=== PATIENT | male | born 1965 | race African-American/Black ===

== ENCOUNTER 2018-04-20 20:36 | Inpatient (IN) | payer SELFPAY ==
[2018-04-20 21:55] LABS: #Basophils 0.1 thou/uL (0.0-0.2); #Lymphocytes 2.3 thou/uL (1.20-3.40); #Monocytes 0.7 thou/uL (0.11-0.59); #Neutrophils 5.1 thou/uL (1.40-6.50); %Basophils 1.6 % (0.0-1.0); %Eosinophils 0.5 % (0.0-10.0); %Lymphocytes 27.6 % (21.0-51.0); %Monocytes 8.5 % (0.0-10.0); %Neutrophils 61.8 % (42.0-75.0); Hemoglobin 14.2 g/dL (14.0-18.0); Mean Corpuscular HGB CONC 31.8 g/dL (32.0-36.0); Mean Corpuscular Hemoglobin 29.1 pg (27.0-31.0); Mean Corpuscular Volume 91.5 fL (78.0-98.0); Mean Platelet Volume 8.4 fL (7.4-10.4); Platelet Count 241 thou/uL (130-400); RBC Distribution Width 12.2 % (11.5-14.5); White Blood Cell (WBC) Count 8.3 thou/uL (4.8-10.8)
[2018-04-20 22:07] LABS: ALT (SGPT) 16 U/L (8-55); AST (SGOT) 20 U/L (5-34); Alkaline Phosphatase 217 U/L (40-150); Anion Gap 16 mmol/L (10-20); BUN (Urea Nitrogen) 9 mg/dL (8.9-20.6); Bilirubin, Total 0.4 mg/dL (0.2-1.2); CRP (Inflammatory) 1.27 mg/dL (= or < 0.5); Calc. Creatinine Clearance 0 mL/min (70-130); Calcium 9.9 mg/dL (7.8-10.44); Carbon Dioxide 27 mmol/L (22-29); Chloride 95 mmol/L (98-107); Estimated GFR-MDRD Greater than 90; Globulin 4.5 g/dL (2.4-3.5); Glucose 87 mg/dL (70-105); Lipase 10 U/L (8-78); Potassium 3.6 mmol/L (3.5-5.1); Protein, Total 8.5 g/dL (6.0-8.3); Sodium 134 mmol/L (136-145)
[2018-04-20] MEDS ORDERED: Ondansetron PF 4 MG/2 ML Vial ONE (22:07)
[2018-04-20] MEDS ORDERED: Morphine 4 MG/ML VIAL ONE ×2 (22:07→22:08)
--- NOTE | 2018-04-20 23:07 | CT ---
CT ABDOMEN AND PELVIS PERFORMED WITH INTRAVENOUS CONTRAST ENHANCEMENT: HISTORY: Diffuse abdominal pain, sudden onset, Saturday. FINDINGS: The lung bases appear mildly hyperexpanded. No infiltrative process. This examination was obtained in a more arterial phase. The liver, spleen, pancreas, and gallbladder regions appear unremarkable, considering this. The right and left adrenal glands and the right and left kidneys are normal in size and appearance. There is no significant periaortic adenopathy. There are some small mesenteric lymph nodes present. There appear to be some postoperative changes with what appear to be some surgical chain type sutures associated with a proximally dilated small bowel loop. There is a fairly normal caliber ileum, whic h progresses to a group of dilated small bowel loops in the left mid abdomen, which is the proximal t o mid ileum. There is a transition to a more caliber mid to distal ileum. There is free fluid withi n the pelvis, more than typically seen for a male. At the level of the more distal transition to a m ore normal caliber small bowel, there is suggestion that there is bowel wall edema associated with th e dilated small bowel loop. There is no pneumatosis identified and no free air. The appendix is not definitively identified. IMPRESSION: Postoperative changes of the abdomen. There is proximal small bowel obstruction involving the proxim al and mid ileum. There appear to be some postoperative changes. This could be more of a closed loo p obstruction, possibly related to adhesions. There does appear to be some mild small bowel wall kaleigh ma associated with this and more free fluid within the pelvis than typically seen for a male. The po ssibility of ischemic bowel is not totally excluded, although I do not see any other features, such a s pneumatosis or free air. These findings were discussed with Dr. Lindo's PA. CODE CR POS: [facility]
--- NOTE | 2018-04-20 23:10 | RAD ---
KUB AND UPRIGHT: HISTORY: Diffuse abdominal pain. FINDINGS: ABDOMEN: There is air within some dilated proximal small bowel loops, with a more focally dilated lo op of bowel, which appears to be small bowel, which overlies the kidney. There are chain type suture s in this region. There is air within the colon. No free air demonstrated. Contrast in the kidneys from the CT is present. CHEST: Heart size and mediastinum are within normal limits. The lungs are clear of infiltrates. IMPRESSION: Postoperative changes of the abdomen with what appears to be a proximal small bowel obstruction. POS: [facility]
--- NOTE | 2018-04-20 23:54 | RAD ---
KUB: HISTORY: NG tube placement. FINDINGS: The NG tube is seen with the tip in the fundus region of the stomach. No other interval change. IMPRESSION: Placement of nasogastric tube. POS: [facility]
[2018-04-21] MEDS ORDERED: Ondansetron PF 4 MG/2 ML Vial IVP PRN (00:24)
[2018-04-21] MEDS ORDERED: Ondansetron ODT 4 MG TAB SL PRN (00:24)
[2018-04-21] MEDS ORDERED: Morphine 4 MG/ML VIAL SLOW IVP PRN (01:17)
[2018-04-21] MEDS ORDERED: Ketorolac Tromethamine 30 MG/ML VIAL IVP PRN (01:18)
[2018-04-21] MEDS: Sodium Chloride 0.9% 1,000 ML IV SCH ×2 (01:32→11:36)
[2018-04-21] MEDS: Acetaminophen 1,000 MG in Premix Bag 1 BAG IVPB PRN ×3 (01:32→21:55)
[2018-04-21 02:00] VITALS: BMI 16.5
[2018-04-21] MEDS: Morphine 4 MG/ML VIAL SLOW IVP PRN ×2 (02:35→04:53)
--- NOTE | 2018-04-21 08:39 | RAD ---
CHEST 1 VIEW AND ABDOMEN 2 VIEWS: Date: 04/21/18 HISTORY: Small bowel obstruction. FINDINGS: Comparison made with exam from previous day. FINDINGS: The heart size is normal. There has been interval placement of a nasogastric tube which can be traced into the stomach. The lungs are expanded without focal areas of consolidation, pneumothoraces, or pl eural effusions. No free air is seen. There is air in loops of small and large bowel. Some of the small bowel loops ap pear dilated. Postop changes are seen in the abdomen. There is contrast in the urinary bladder and pe lvicaliceal systems. IMPRESSION: Ileus versus partial small bowel obstruction. POS: [facility]
[2018-04-21] MEDS ORDERED: Pantoprazole 40 MG VIAL IVP SCH (10:45)
[2018-04-21] MEDS ORDERED: Cepastat Lozenges 1 LOZ PO PRN (11:04)
[2018-04-21] MEDS ORDERED: Chloraseptic Spray 180 ml Bottle PO PRN (11:05)
[2018-04-21] MEDS: D5 1/2 NS w/20 mEq KCL 1,000 ML IV SCH ×2 (17:40→20:33)
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
[2018-04-21] MEDS ORDERED: Ondansetron PF 4 MG/2 ML Vial SLOW IVP PRN (18:51)
[2018-04-22] MEDS: D5 1/2 NS w/20 mEq KCL 1,000 ML IV SCH ×2 (03:54→13:15)
[2018-04-22 08:55] LABS: #Basophils 0.1 thou/uL (0.0-0.2); #Lymphocytes 1.7 thou/uL (1.20-3.40); #Monocytes 0.6 thou/uL (0.11-0.59); #Neutrophils 3.9 thou/uL (1.40-6.50); %Basophils 1.1 % (0.0-1.0); %Eosinophils 0.7 % (0.0-10.0); %Neutrophils 61.2 % (42.0-75.0); Hemoglobin 12.1 g/dL (14.0-18.0); Mean Corpuscular HGB CONC 33.1 g/dL (32.0-36.0); Mean Corpuscular Hemoglobin 30.4 pg (27.0-31.0); Mean Corpuscular Volume 91.9 fL (78.0-98.0); Mean Platelet Volume 8.2 fL (7.4-10.4); Platelet Count 173 thou/uL (130-400); Red Blood Cell (RBC) Count 3.98 mill/uL (4.70-6.10); White Blood Cell (WBC) Count 6.3 thou/uL (4.8-10.8)
[2018-04-22] MEDS ORDERED: diphenhydrAMINE 50 MG/ML VIAL IVP PRN (08:58)
[2018-04-22] MEDS ORDERED: Pantoprazole 40 MG VIAL IVP SCH (09:00)
[2018-04-22 09:29] LABS: Anion Gap 10 mmol/L (10-20); BUN (Urea Nitrogen) 9 mg/dL (8.9-20.6); Calc. Creatinine Clearance 89 mL/min (70-130); Calcium 8.1 mg/dL (7.8-10.44); Carbon Dioxide 27 mmol/L (22-29); Chloride 103 mmol/L (98-107); Estimated GFR-MDRD Greater than 90; Glucose 100 mg/dL (70-105); Magnesium 2.7 mg/dL (1.6-2.6); Phosphorus 2.6 mg/dL (2.3-4.7); Potassium 3.7 mmol/L (3.5-5.1); Sodium 136 mmol/L (136-145)
--- NOTE | 2018-04-22 11:20 | RAD ---
SMALL BOWEL SERIES: Date: 04/22/18 HISTORY: Small bowel obstruction, abdominal pain. FINDINGS: Brim Setter film demonstrates a nasogastric tube in the stomach. The bowel gas pattern is unremarkable. Ser ial imaging was performed after instillation of Gastrografin into the stomach via NG tube. There is u nobstructed flow of contrast through the loops of small bowel into the colon by 70 minutes. There is mild dilatation of a few small bowel loops in the left hemiabdomen. IMPRESSION: No evidence of small bowel obstruction. POS: [facility]
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
[2018-04-22 15:56] VITALS: BP 104/61; TEMP 98.1
--- NOTE | 2018-04-25 15:30 | EKG ---
Test Reason : Blood Pressure : / mmHG Vent. Rate : 054 BPM Atrial Rate : 054 BPM P-R Int : 148 ms QRS Dur : 082 ms QT Int : 426 ms P-R-T Axes : 060 071 081 degrees QTc Int : 403 ms Sinus bradycardia Minimal voltage criteria for LVH, may be normal variant ST elevation, consider early repolarization, pericarditis, or injury ST elevatopn in V3 No STEMI Abnormal ECG Confirmed by AMY PEREZ M.D. ([id number]), associate entertainment editor DA ESTEVEZ ([id number]) on 04/25/2018 3:30:21 PM Referred By: Confirmed By:AMY PEREZ M.D.
== END 2018-04-22 15:50 | disposition home or self-care (01) | DRG 390 ==
LOC: ERS 20:36 → SURG B 23:01
PROVIDERS: ADMIT Specialist; ATTEND Specialist
PROC: 0D9670Z Drainage of Stomach with Drainage Device, Via Natural or Artificial Opening (ICD-10-PCS; principal; 2018-04-20)
DX: K56.609 Unspecified intestinal obstruction, unspecified as to partial versus complete obstruction (principal); G40.909 Epilepsy, unspecified, not intractable, without status epilepticus
CPT/HCPCS: 36415; 74018; 74022; 74177; 74250; 80048; 80053; 83690; 83735; 84100; 84484; 85025; 86140; 90471; 90686; 93005; C9113; G0008; J0131; J1200; J2270; J2405; J2920

== ENCOUNTER 2018-05-23 23:26 | Inpatient (IN) | payer SELFPAY ==
[2018-05-24] MEDS ORDERED: Ondansetron PF 4 MG/2 ML Vial ONE ×2 (00:05→05:51)
[2018-05-24] MEDS ORDERED: Morphine 4 MG/ML VIAL ONE ×4 (00:05→08:17)
[2018-05-24 00:20] LABS: #Basophils 0.1 thou/uL (0.0-0.2); #Eosinphils 0.1 thou/uL (0.0-0.7); #Lymphocytes 2.2 thou/uL (1.20-3.40); #Monocytes 0.4 thou/uL (0.11-0.59); #Neutrophils 3.8 thou/uL (1.40-6.50); %Basophils 0.8 % (0.0-1.0); %Eosinophils 1.3 % (0.0-10.0); %Lymphocytes 33.6 % (21.0-51.0); %Monocytes 6.7 % (0.0-10.0); %Neutrophils 57.6 % (42.0-75.0); Hemoglobin 12.2 g/dL (14.0-18.0); Mean Corpuscular HGB CONC 32.2 g/dL (32.0-36.0); Mean Corpuscular Hemoglobin 30.2 pg (27.0-31.0); Mean Corpuscular Volume 93.9 fL (78.0-98.0); Mean Platelet Volume 8.3 fL (7.4-10.4); Platelet Count 180 thou/uL (130-400); RBC Distribution Width 12.3 % (11.5-14.5); Red Blood Cell (RBC) Count 4.03 mill/uL (4.70-6.10); White Blood Cell (WBC) Count 6.6 thou/uL (4.8-10.8)
[2018-05-24 00:42] LABS: ALT (SGPT) 11 U/L (8-55); AST (SGOT) 14 U/L (5-34); Albumin 3.9 g/dL (3.5-5.0); Alkaline Phosphatase 202 U/L (40-150); Anion Gap 15 mmol/L (10-20); BUN (Urea Nitrogen) 9 mg/dL (8.9-20.6); Bilirubin, Total 0.3 mg/dL (0.2-1.2); Calc. Creatinine Clearance 0 mL/min (70-130); Calcium 9.1 mg/dL (7.8-10.44); Carbon Dioxide 23 mmol/L (22-29); Chloride 102 mmol/L (98-107); Estimated GFR-MDRD Greater than 90; Globulin 3.5 g/dL (2.4-3.5); Glucose 84 mg/dL (70-105); Potassium 3.9 mmol/L (3.5-5.1); Protein, Total 7.4 g/dL (6.0-8.3); Sodium 136 mmol/L (136-145)
[2018-05-24 00:51] LABS: Bilirubin Negative (Negative); Blood, Urine Negative (Negative); Clarity CLEAR (Clear); Glucose, Urine (Dipstick) Negative (Negative); Leukocyte Negative (Negative); Nitrite Negative (Negative); Protein, Urine (Dipstick) Trace mg/dL (Neg-Trace); Specific Gravity, Urine 1.029 (1.002-1.036); Urobilinogen 0.2 mg/dL (0.2-1.0)
[2018-05-24] MEDS ORDERED: Lidocaine Viscous Sol 2% 15 ml UD Cup ONE (03:08)
--- NOTE | 2018-05-24 08:53 | RAD ---
RADIOGRAPH CHEST 1 VIEW: Date: 05/24/2018. Time: 3:16 a.m. HISTORY: 52-year-old male status post NG tube placement. Abdominal pain. FINDINGS: The image is centered at the lower chest, and excludes the upper chest. NG tube is curled in the fun dus of the stomach. IMPRESSION: Nasogastric tube curled in fundus of stomach. ENRIQUE [] POS: [facility]
[2018-05-24] MEDS ORDERED: Dextrose 50% Abboject 50 ML SYRINGE SLOW IVP PRN (10:05)
[2018-05-24] MEDS ORDERED: Dextrose 5% in Water 1,000 ML IV PRN (10:05)
[2018-05-24] MEDS ORDERED: Ondansetron PF 4 MG/2 ML Vial IVP PRN (10:05)
[2018-05-24] MEDS ORDERED: Morphine 2 MG/ML SYRINGE SLOW IVP PRN (10:05)
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
[2018-05-24] MEDS: Acetaminophen 1,000 MG in Premix Bag 1 BAG IVPB PRN ×2 (10:53→18:13)
[2018-05-24] MEDS: D5 1/2 NS w/20 mEq KCL 1,000 ML IV SCH ×2 (10:54→18:13)
[2018-05-24] MEDS: Morphine 4 MG/ML VIAL SLOW IVP PRN ×3 (10:57→21:24)
[2018-05-24 11:02] VITALS: BMI 18.2
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
[2018-05-24] MEDS: Famotidine/PF 20 mg/2ml Vial SLOW IVP SCH (21:24)
[2018-05-24] MEDS: Enoxaparin Sodium 40 MG/0.4 ML SYRINGE SC SCH (21:26)
[2018-05-25] MEDS: D5 1/2 NS w/20 mEq KCL 1,000 ML IV SCH ×2 (03:56→13:05)
[2018-05-25] MEDS: Morphine 4 MG/ML VIAL SLOW IVP PRN ×2 (04:05→23:14)
[2018-05-25 07:46] LABS: #Basophils 0.1 thou/uL (0.0-0.2); #Eosinphils 0.1 thou/uL (0.0-0.7); #Lymphocytes 2.7 thou/uL (1.20-3.40); #Monocytes 0.5 thou/uL (0.11-0.59); #Neutrophils 3.1 thou/uL (1.40-6.50); %Basophils 0.8 % (0.0-1.0); %Eosinophils 1.1 % (0.0-10.0); %Lymphocytes 41.7 % (21.0-51.0); %Monocytes 8.1 % (0.0-10.0); %Neutrophils 48.3 % (42.0-75.0); Hemoglobin 11.4 g/dL (14.0-18.0); Mean Corpuscular HGB CONC 31.8 g/dL (32.0-36.0); Mean Corpuscular Hemoglobin 29.7 pg (27.0-31.0); Mean Corpuscular Volume 93.3 fL (78.0-98.0); Mean Platelet Volume 8.5 fL (7.4-10.4); Platelet Count 179 thou/uL (130-400); RBC Distribution Width 12.2 % (11.5-14.5); Red Blood Cell (RBC) Count 3.83 mill/uL (4.70-6.10); White Blood Cell (WBC) Count 6.4 thou/uL (4.8-10.8)
[2018-05-25 08:06] LABS: Anion Gap 14 mmol/L (10-20); BUN (Urea Nitrogen) 6 mg/dL (8.9-20.6); Calc. Creatinine Clearance 102 mL/min (70-130); Calcium 8.4 mg/dL (7.8-10.44); Carbon Dioxide 21 mmol/L (22-29); Chloride 103 mmol/L (98-107); Estimated GFR-MDRD Greater than 90; Glucose 96 mg/dL (70-105); Potassium 4.4 mmol/L (3.5-5.1); Sodium 134 mmol/L (136-145)
[2018-05-25] MEDS: Cepastat Lozenges 1 LOZ PO PRN ×2 (08:18→13:04)
[2018-05-25] MEDS: Famotidine/PF 20 mg/2ml Vial SLOW IVP SCH ×2 (08:19→21:01)
[2018-05-25] MEDS: Acetaminophen 1,000 MG in Premix Bag 1 BAG IVPB PRN (08:24)
--- NOTE | 2018-05-25 13:26 | PDOC.GSPN ---
Surgery Progress Note: Subj - Subjective Narrative: I saw the patient yesterday afternoon he was feeling much better. He has continued to improve and his pain and nausea have completely resolved. He has passed gas and had a small bowel movement. His abdomen is soft nontender nondistended. Labs looked good and vital signs are normal. Assessment/plan: Small bowel obstruction, clinically resolved. He has had minimal NG output yesterday and is nontender and asymptomatic. I will get a Gastrografin small bowel follow-through and if this is normal we will discontinue his NG tube and start him on a liquid diet. Surgery Progress Note: Obj - Vital signs Vital signs: Vital Signs - Most Recent Temp Pulse Resp BP Pulse Ox 98 F 62 18 103/70 95 05/25/18 12:35 05/25/18 12:35 05/25/18 12:35 05/25/18 12:35 05/25/18 12:35 Surgery Progress Note: Results - Labs Result Diagrams: 05/25/18 07:28 05/25/18 07:28 Lab results: Laboratory Results - last 24 hr 05/25/18 05/25/18 07:28 07:28 WBC 6.4 RBC 3.83 L Hgb 11.4 L Hct 35.8 L MCV 93.3 MCH 29.7 MCHC 31.8 L RDW 12.2 Plt Count 179 MPV 8.5 Neutrophils % 48.3 Lymphocytes % 41.7 Monocytes % 8.1 Eosinophils % 1.1 Basophils % 0.8 Neutrophils # 3.1 Lymphocytes # 2.7 Monocytes # 0.5 Eosinophils # 0.1 Basophils # 0.1 Sodium 134 L Potassium 4.4 Chloride 103 Carbon Dioxide 21 L Anion Gap 14 BUN 6 L Creatinine 0.79 Estimated GFR (MDRD) Greater than 90 Glucose 96 Calcium 8.4
[2018-05-25] MEDS ORDERED: MD-Gastroview 120 ML BOT ONE (13:27)
--- NOTE | 2018-05-25 18:44 | RAD ---
SMALL BOWEL FOLLOW THROUGH: History: Abdominal pain. Obstruction. Comparison: 04-22-18 FINDINGS: Parts Inspector KUB shows a nonspecific bowel gas pattern. Nasogastric tube is in good position. Early images show contrast throughout nondilated small bowel. At 30 minutes, there is contrast in the right colon. IMPRESSION: Rapid small bowel transit. No evidence of obstruction. POS: [facility]
[2018-05-25] MEDS: Enoxaparin Sodium 40 MG/0.4 ML SYRINGE SC SCH (21:08)
[2018-05-26] MEDS: D5 1/2 NS w/20 mEq KCL 1,000 ML IV SCH (02:22)
[2018-05-26] MEDS: Famotidine/PF 20 mg/2ml Vial SLOW IVP SCH (08:51)
[2018-05-26 11:38] VITALS: BP 90/52; TEMP 97.9
== END 2018-05-26 15:00 | disposition home or self-care (01) | DRG 390 ==
LOC: ERS 23:26 → ERHOLD 05-24 01:50 → 3SE 05-24 02:15
PROVIDERS: ADMIT Internal Medicine; ATTEND Internal Medicine
DX: K56.609 Unspecified intestinal obstruction, unspecified as to partial versus complete obstruction (principal); F17.210 Nicotine dependence, cigarettes, uncomplicated; G40.909 Epilepsy, unspecified, not intractable, without status epilepticus; Z88.8 Allergy status to other drugs, medicaments and biological substances; Z91.041 Radiographic dye allergy status
CPT/HCPCS: 36415; 71045; 74176; 74250; 80048; 80053; 81003; 85025; 93306; 96361; 96374; 96375; 96376; J0131; J1650; J2270; J2405; Q9963; S0028

== ENCOUNTER 2019-12-01 16:13 | Inpatient (IN) | payer OTHER, SELFPAY ==
[2019-12-01 16:55] LABS: #Basophils 0.1 thou/uL (0.0-0.2); #Lymphocytes 1.6 thou/uL (1.20-3.40); #Monocytes 1.1 thou/uL (0.11-0.59); #Neutrophils 9.2 thou/uL (1.40-6.50); %Basophils 0.4 % (0.0-1.0); %Eosinophils 0.1 % (0.0-10.0); %Lymphocytes 13.3 % (21.0-51.0); %Monocytes 9.3 % (0.0-10.0); %Neutrophils 76.9 % (42.0-75.0); Hemoglobin 13.1 g/dL (14.0-18.0); Mean Corpuscular HGB CONC 33.1 g/dL (32.0-36.0); Mean Corpuscular Hemoglobin 31.1 pg (27.0-31.0); Mean Corpuscular Volume 93.9 fL (78.0-98.0); Mean Platelet Volume 8.6 fL (7.4-10.4); Platelet Count 166 thou/uL (130-400); RBC Distribution Width 13.3 % (11.5-14.5); Red Blood Cell (RBC) Count 4.21 mill/uL (4.70-6.10)
[2019-12-01 17:07] LABS: Acetaminophen Less than 6.0 mcg/mL (10.0-30.0); Alcohol Less than 10 mg/dL (Less than 10); CK (CPK) 241 U/L (30-200); Salicylate Less than 8.0 mg/dL (15.0-30.0)
[2019-12-01 17:08] LABS: ALT (SGPT) 10 U/L (8-55); AST (SGOT) 20 U/L (5-34); Albumin 3.7 g/dL (3.5-5.0); Alkaline Phosphatase 200 U/L (40-110); Anion Gap 18 mmol/L (10-20); BUN (Urea Nitrogen) 5 mg/dL (8.4-25.7); Bilirubin, Total 0.5 mg/dL (0.2-1.2); Calc. Creatinine Clearance 0 mL/min (70-130); Calcium 8.5 mg/dL (7.8-10.44); Carbon Dioxide 16 mmol/L (22-29); Chloride 102 mmol/L (98-107); Estimated GFR-MDRD Greater than 90; Globulin 3.7 g/dL (2.4-3.5); Glucose 119 mg/dL (70-105); Magnesium 1.9 mg/dL (1.6-2.6); Potassium 3.9 mmol/L (3.5-5.1); Protein, Total 7.4 g/dL (6.0-8.3); Sodium 132 mmol/L (136-145)
--- NOTE | 2019-12-01 17:23 | RAD ---
XR Chest 1 View Portable HISTORY: Seizures and altered mental status COMPARISON: 05/24/2018 FINDINGS: The heart size is normal. There is prominence of the central pulmonary vasculature The lung s are well expanded without focal areas of consolidation, pneumothorax or pleural effusions. IMPRESSION: No radiographic evidence of acute cardiopulmonary process.
[2019-12-01] MEDS ORDERED: levETIRAcetam In NaCl (Iso-Os) 1,500 MG in Premix Bag 1 BAG IVPB SCH (17:30)
[2019-12-01 17:36] LABS: Amphetamine Not Detected (NotDetected); Barbiturates Screen Detected (NotDetected); Benzodiazepine Screen Not Detected (NotDetected); Cocaine Metabolite Screen Not Detected (NotDetected); Medtox Control Line Valid? VALID (VALID); Medtox Reader # READER 4; Methadone Not Detected (NotDetected); Methamphetamine Not Detected (NotDetected); Opiate Screen Not Detected (NotDetected); Oxycodone Screen Not Detected (NotDetected); Phencyclidine (PCP) Not Detected (NotDetected); THC/Cannabinoid Screen Not Detected (NotDetected); Tricyclic Screen Not Detected (NotDetected)
[2019-12-01 17:41] LABS: Bacteria/HPF None Seen HPF (None Seen); Bilirubin Negative (Negative); Blood, Urine 1+ (Negative); Clarity Clear (Clear); Glucose, Urine (Dipstick) Normal (Negative); Ketone, Urine Trace mg/dL (Negative); Leukocyte Negative Leu/uL (Negative); Nitrite Negative (Negative); Protein, Urine (Dipstick) 30 mg/dL (Neg-Trace); RBC/HPF 0-3 HPF (0-3); Specific Gravity, Urine 1.015 (1.002-1.036); Squamous Epithelial 0-3 HPF (0-3); Urobilinogen Normal mg/dL (Less than 2); WBC/HPF 0-3 HPF (0-3); pH, Urine 5.5 (5.0-9.0)
--- NOTE | 2019-12-01 17:44 | CT ---
CT BRAIN WITHOUT CONTRAST: 12/01/19 HISTORY: Altered mental status, seizure, headache. COMPARISON: 03/27/15. A tiny lacunar infarction in the right caudate head is again seen. The ventricular size is appropriat e and the basilar cisterns patent. No evidence of acute infarct, hemorrhage, midline shift or abnorma l extra-axial fluid collections are seen. The bony calvarium is intact. The visualized paranasal sinuses and mastoid air cells are well aerated . IMPRESSION: No CT evidence of acute intracranial process. POS: [facility]
[2019-12-01] MEDS ORDERED: cefTRIAXone\\ROCEPHIN 2 GM VIAL ONE (18:51)
[2019-12-01] MEDS ORDERED: Lidocaine 1% w/Epinephrine 1:100K 20 ML VIAL ONE (19:01)
[2019-12-01] MEDS ORDERED: Ketamine 50 MG/ML (10ML VIAL) ONE (19:06)
[2019-12-01] MEDS ORDERED: Midazolam HCl 2 mg/2 ml Vial ONE (19:39)
[2019-12-01 20:14] LABS: Color Of CSF Supernatant COLORLESS (Colorless); Tube # 2; Unspun CSF Color COLORLESS (Colorless)
[2019-12-01 20:27] LABS: CSF, Glucose 70 mg/dl (40-70); CSF, Protein 39 mg/dL (15-40)
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
[2019-12-01 21:41] LABS: CSF Source CSF; Clarity Hazy (Clear); Tube # 1
[2019-12-01 21:43] LABS: CSF WBC/NonHematics Count-Man 11 /cu.mm (0-5)
[2019-12-01 21:44] LABS: CSF RBC Count - Manual 1454 /cu.mm (None Seen)
[2019-12-01 21:52] LABS: Cell Count Non Hematic 10 %; Lymphocytes 25 %; Segmented Neutrophils 65 %
[2019-12-01 22:11] LABS: CSF Source CSF; Clarity Clear (Clear); Tube # 4
[2019-12-01] MEDS ORDERED: Ondansetron ODT 4 MG TAB PO PRN (23:06)
[2019-12-01] MEDS ORDERED: Acetaminophen 650 MG Suppository PR PRN (23:06)
[2019-12-01] MEDS ORDERED: Ondansetron PF 4 MG/2 ML Vial IVP PRN (23:06)
[2019-12-01] MEDS ORDERED: Lorazepam 2 MG/ML VIAL SLOW IVP PRN (23:06)
[2019-12-01] MEDS ORDERED: Acetaminophen 325 MG TAB PO PRN (23:06)
[2019-12-01] MEDS ORDERED: Calcium Carbonate 500 MG ChewTAB PO PRN (23:06)
[2019-12-01] MEDS ORDERED: Diazepam 5 MG TAB PO PRN (23:14)
[2019-12-01] MEDS ORDERED: Diazepam 5 MG TAB PO SCH (23:15)
[2019-12-01] MEDS ORDERED: Thiamine HCl 200 MG/2 ML VIAL IM SCH (23:15)
[2019-12-01 23:57] VITALS: BMI 18.6
[2019-12-02] MEDS: Lactated Ringer's 1,000 ML IV SCH ×3 (00:17→16:12)
[2019-12-02] MEDS ORDERED: Diazepam 5 MG TAB PO PRN (04:00)
[2019-12-02 05:44] LABS: #Monocytes 0.8 thou/uL (0.11-0.59); #Neutrophils 6.8 thou/uL (1.40-6.50); %Basophils 0.3 % (0.0-1.0); %Eosinophils 0.5 % (0.0-10.0); %Lymphocytes 27.8 % (21.0-51.0); %Monocytes 7.3 % (0.0-10.0); %Neutrophils 64.2 % (42.0-75.0); Mean Corpuscular Hemoglobin 29.9 pg (27.0-31.0); Mean Corpuscular Volume 93.5 fL (78.0-98.0); Mean Platelet Volume 8.5 fL (7.4-10.4); Platelet Count 149 thou/uL (130-400); RBC Distribution Width 13.2 % (11.5-14.5); Red Blood Cell (RBC) Count 4.01 mill/uL (4.70-6.10); White Blood Cell (WBC) Count 10.6 thou/uL (4.8-10.8)
--- NOTE | 2019-12-02 06:36 | PDOC.FM ---
- Subjective Subjective: Patient resting comfortably in bed this AM. He is confused on what happened, he does not remember having a seizure or what he was doing yesterday. He denies trauma, signs of infection, he states compliance with his Phenytoin, which his PCP manages. However, he says he takes it BID and our med rec says it is supposed to be TID. He endorses drinking 1 can of beer every other day, no drug use, and tobacco use about 1/2-1ppd "forever". Denies any PMH except for seizures which started in childhood. No WALSH, vision changes, additional seizure activity, CP, SOB. He does endorse 10/10 R elbow pain, but does not remember if he injured it or not. - Objective MAR Reviewed: Yes Vital Signs & Weight: Vital Signs (12 hours) Temp Pulse Resp BP Pulse Ox 12/01/19 22:10 99.3 F 68 18 115/58 L 95 Weight Weight 65.635 kg Result Diagrams: 12/02/19 04:45 12/02/19 07:54 Phys Exam - Physical Examination Constitutional: NAD HEENT: PERRLA, sclera anicteric Neck: supple, full ROM Respiratory: no wheezing, clear to auscultation bilateral Cardiovascular: RRR, no significant murmur Gastrointestinal: soft, non-tender, positive bowel sounds Musculoskeletal: no edema, pulses present R elbow TTP, limited ROM 2/2 pain. No swelling appreicated on exam Neurological: normal sensation, moves all 4 limbs Psychiatric: normal affect, A&O x 3 Deviation from normal: seems groggy, and still confused about what happened Skin: no rash Deviation from normal: clubbing of finger nails Dx/Plan - Plan Plan: Seizure w/ post ictal state - Hx of seizure disorder, supposed to be on Dilantin at home, will call patient pharmacy to see scheduled dosing as it seems he should be on it TID, but endorses taking it only BID -prolactin elevated at 21.39 - Hx of EtOH use, but alcohol <10 on admission and upon questioning does not seem to be a contributing factor - Received loading Keppra dose in ED - Admit to Stroke - 500 mg Keppra BID IV- will switch to PO Phenytoin today - Ativan for active seizures - LR @ 120cc/hr Clubbing of fingernails -lung disease vs metabolic vs cardiac vs GI -significant smoking history, CXR shows only prominence of central pulmonary vasculature -TSH pending -will continue to investigate Anemia -Iron studies pending -Folate, B12 pending R elbow pain -unsure if trauma occurred during seizure -XR pending DVT ppx: SCD GI ppx: pepcid Diet: regular IVF: LR @ 120 MIVF Code: Full code Disposition/LOS: Admit to stroke in patient for seizure, LOS >48 hrs Addendum - Attending - Attending Attestation Date/Time: 12/02/19 1151 I personally evaluated the patient and discussed the management with Dr. Rooney. I agree with the History, Examination, Assessment and Plan documented above with any addition or exceptions noted below. Patient stable. Does not remember seizure activity. Now on Keppra, EEG pending. Further mgmt pending Neuro recs but hopeful quick turnaround and discharge this afternoon or tomorrow with close follow up.
[2019-12-02] MEDS ORDERED: Thiamine 100 MG TAB PO SCH (09:00)
[2019-12-02] MEDS ORDERED: Multivitamin W/ Minerals 1 TAB PO SCH (09:00)
[2019-12-02] MEDS ORDERED: Famotidine 20 MG TAB PO SCH (09:00)
[2019-12-02] MEDS ORDERED: Magnesium Oxide 400 MG TAB PO SCH (09:00)
[2019-12-02] MEDS ORDERED: Folic Acid 1 MG TAB PO SCH (09:00)
[2019-12-02 09:09] LABS: Ferritin 264.05 ng/mL (22-322)
[2019-12-02 09:10] LABS: Thyroid Stimulating Hormone 0.3638 uIU/mL (0.35-4.94)
[2019-12-02 09:12] LABS: ALT (SGPT) 11 U/L (8-55); AST (SGOT) 17 U/L (5-34); Albumin 3.4 g/dL (3.5-5.0); Alkaline Phosphatase 178 U/L (40-110); Anion Gap 12 mmol/L (10-20); BUN (Urea Nitrogen) 5 mg/dL (8.4-25.7); Calc. Creatinine Clearance 103 mL/min (70-130); Calcium 8.5 mg/dL (7.8-10.44); Carbon Dioxide 23 mmol/L (22-29); Chloride 104 mmol/L (98-107); Estimated GFR-MDRD Greater than 90; Globulin 3.3 g/dL (2.4-3.5); Glucose 84 mg/dL (70-105); Iron 69 ug/dL (65-175); Iron Binding Capacity, Total 345 mcg/dL (261-462); Potassium 3.5 mmol/L (3.5-5.1); Protein, Total 6.7 g/dL (6.0-8.3); Sodium 135 mmol/L (136-145)
--- NOTE | 2019-12-02 09:18 | RAD ---
EXAM: 2 views of the right elbow HISTORY: Elbow pain COMPARISON: None FINDINGS: No elbow effusion is seen. There is no evidence of acute fracture or dislocation. There horacio ears to be a remote healed distal humerus fracture. Moderate degenerative changes are seen in the elbow joint. Small radiopaque foreign bodies anterior to the elbow may represent retained shrapnel. No soft tissue swelling is present. IMPRESSION: Moderate degenerative changes without evidence of acute osseous abnormality.
[2019-12-02 13:15] LABS: SARS-CoV-2 MS2 Positive; SARS-CoV-2 N Gene Negative; SARS-CoV-2 S Gene Negative; SARS-CoV-2 by NAA Not Detected (NotDetected); SARS-CoV-2 orf1ab Negative
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
[2019-12-02] MEDS ORDERED: Lorazepam 2 MG/ML VIAL SLOW IVP PRN (15:18)
--- NOTE | 2019-12-02 15:19 | EEG ---
DATE OF SERVICE: 12/02/2019 ATTENDING PHYSICIAN: Jaclyn Corona MD This EEG was performed using 24-channel [employer] video digital EEG machine with 24-disk electrodes. This was an extended 2-hour 5 minutes of inpatient video EEG recording. Digital analysis of the EEG was done for spike and seizure detection, which revealed no abnormalities. BACKGROUND: The posterior background rhythm was not observed. HYPERVENTILATION: Not performed. PHOTIC STIMULATION: Not performed. SLEEP: No stage change was observed. EEG DIAGNOSES: 1. Intermittent irregular theta activity seen throughout the recording. 2. Absence of posterior background rhythm. CLINICAL INTERPRETATION: This EEG is consistent with moderate generalized nonspecific cerebral dysfunction. Job ID: [id number]
[2019-12-02 15:42] VITALS: BP 107/58; TEMP 97.8
[2019-12-02] MEDS ORDERED: levETIRAcetam 500 MG TAB PO SCH ×2 (21:00)
--- NOTE | 2019-12-03 02:36 | DIS ---
DATE OF ADMISSION: 12/01/2019 DATE OF DISCHARGE: 12/02/2019 RESIDENT: Nancy Rooney MD, PGY-1 ADMITTING ATTENDING: Ata Reeves MD DISCHARGE ATTENDING: Ata Reeves MD CONSULT: Neurology and PT PROCEDURES: EEG, which was negative. Lumbar puncture which showed no organisms. PRIMARY DIAGNOSIS: Seizure with postictal state. SECONDARY DIAGNOSES: 1. Clubbing of finger nails. 2. Anemia. 3. Right elbow pain. DISCHARGE MEDICATION: Keppra 500 mg p.o. b.i.d. DISCONTINUED MEDICATION: Dilantin 100 mg t.i.d. HISTORY OF PRESENT ILLNESS/HOSPITAL COURSE: The patient is a 54-year-old male with a past medical history of adult-onset seizures who presented to the ED after witnessed seizure by EMS. The patient was unable to answer questions upon arrival to the ED. HPI provided by EMS to ER physician was that he had a headache earlier in the day of admission, and he was found in a hot room without air conditioning and was actively seizing at the time that he was found by EMS. The patient was postictal on arrival. The patient had an LP performed with ketamine sedation and received 2 g of Rocephin and 1500 mg of Keppra in the ED. Upon further questioning when the patient was more awake, he was confused on what happened and did not remember having a seizure, and he does not remember what he was doing yesterday. He denies any recent illness, trauma, signs of infection, any drug use. He states compliance with his phenytoin, which his primary care doctor manages. He does not follow up with a neurologist. However, on further questioning, the patient says he has been taking his phenytoin twice a day, but upon medication reconciliation, he is supposed to be taking it t.i.d. Phenytoin levels were low. UDS was only positive for barbiturates, and negative for everything else. Prolactin was elevated at 21.39. Urine was negative for signs of infection. CSF was negative for signs of infection, and no organisms were seen. Blood culture, preliminary results with no growth to date. Urine culture has also no growth at 12 hours with preliminary results. During hospitalization, the patient had no more seizure episodes. EEG was performed with negative results as stated above. Neurology was consulted and medications were changed as indicated above. PT was consulted and worked with the patient and discharged him from their service. The patient's vitals were stable throughout his stay. Educated patient about the importance of follow up with his PCP and compliance with his seizure medications. DISPOSITION: Stable. DISCHARGE INSTRUCTIONS: 1. Location, home. 2. Diet, no restrictions. 3. Activity, no restrictions. 4. Follow up with PCP for hospital followup and also for potential followup of physical exam finding of clubbing of his nails. The patient does have an extensive history of smoking. May consider outpatient workup for possible lung malignancy or underlying lung process. Job ID: [id number] [facility]
== END 2019-12-02 18:20 | disposition home or self-care (01) | DRG 101 ==
LOC: ERS 16:13 → OBSVTOIN 20:43 → 2SE 20:43
PROVIDERS: ADMIT Internal Medicine; ATTEND Student in an Organized Health Care Education/Training Program
DX: G40.909 Epilepsy, unspecified, not intractable, without status epilepticus (principal); R68.3 Clubbing of fingers; F17.210 Nicotine dependence, cigarettes, uncomplicated; F10.10 Alcohol abuse, uncomplicated; M25.521 Pain in right elbow; D64.9 Anemia, unspecified; Z88.8 Allergy status to other drugs, medicaments and biological substances; Z79.1 Long term (current) use of non-steroidal anti-inflammatories (NSAID)
CPT/HCPCS: 36415; 70450; 71045; 80053; 80185; 80306; 80307; 81003; 81015; 82550; 82607; 82728; 82746; 82945; 83540; 83550; 83735; 84146; 84157; 84443; 85025; 85060; 87040; 87070; 87086; 87205; 87635; 89051; 93005; 94760; 95712; 95816; 95819; 95957; G0378; J0696; J1953; J2250; J3411; J3475; J3490; U0003

== ENCOUNTER 2020-07-07 13:11 | Emergency (ER) | payer SELFPAY ==
[2020-07-07 14:03] LABS: #Lymphocytes 1.6 thou/uL (1.20-3.40); #Monocytes 0.5 thou/uL (0.11-0.59); #Neutrophils 4.2 thou/uL (1.40-6.50); %Basophils 0.3 % (0.0-1.0); %Eosinophils 0.5 % (0.0-10.0); %Lymphocytes 25.5 % (21.0-51.0); %Monocytes 7.7 % (0.0-10.0); %Neutrophils 66.1 % (42.0-75.0); Hemoglobin 13.9 g/dL (14.0-18.0); Mean Corpuscular HGB CONC 32.8 g/dL (32.0-36.0); Mean Corpuscular Hemoglobin 31.3 pg (27.0-31.0); Mean Corpuscular Volume 95.4 fL (78.0-98.0); Mean Platelet Volume 8.3 fL (7.4-10.4); Platelet Count 160 thou/uL (130-400); Red Blood Cell (RBC) Count 4.46 mill/uL (4.70-6.10); White Blood Cell (WBC) Count 6.4 thou/uL (4.8-10.8)
[2020-07-07 14:08] LABS: INR-International Normal Ratio 1.1; PTT 28.7 sec (22.9-36.1); Prothrombin Time 14.3 sec (12.0-14.7)
[2020-07-07 14:17] LABS: ALT (SGPT) 27 U/L (8-55); AST (SGOT) 34 U/L (5-34); Acetaminophen Less than 6.0 mcg/mL (10.0-30.0); Alcohol Less than 10 mg/dL (Less than 10); Alkaline Phosphatase 184 U/L (40-110); Anion Gap 15 mmol/L (10-20); BUN (Urea Nitrogen) 11 mg/dL (8.4-25.7); Bilirubin, Total 0.4 mg/dL (0.2-1.2); Calc. Creatinine Clearance 0 mL/min (70-130); Calcium 8.8 mg/dL (7.8-10.44); Carbon Dioxide 22 mmol/L (22-29); Chloride 101 mmol/L (98-107); Globulin 3.4 g/dL (2.4-3.5); Glucose 92 mg/dL (70-105); Potassium 4.5 mmol/L (3.5-5.1); Protein, Total 7.4 g/dL (6.0-8.3); Salicylate Less than 8.0 mg/dL (15.0-30.0); Sodium 133 mmol/L (136-145)
[2020-07-07] MEDS ORDERED: Acetaminophen 500 MG TAB ONE (15:06)
[2020-07-07 15:16] LABS: Bilirubin Negative (Negative); Blood, Urine Negative (Negative); Clarity Clear (Clear); Glucose, Urine (Dipstick) Normal (Negative); Ketone, Urine Negative (Negative); Leukocyte Negative Leu/uL (Negative); Nitrite Negative (Negative); Protein, Urine (Dipstick) 70 mg/dL (Neg-Trace); RBC/HPF 0-3 HPF (0-3); Specific Gravity, Urine 1.017 (1.002-1.036); Squamous Epithelial 0-3 HPF (0-3); Urobilinogen Normal mg/dL (Less than 2); WBC/HPF 0-3 HPF (0-3); pH, Urine 6.5 (5.0-9.0)
[2020-07-07 15:29] LABS: Bacteria/HPF Rare-Few HPF (None Seen); Sperm/HPF Rare HPF (None Seen)
[2020-07-07 15:32] LABS: Amphetamine Not Detected (NotDetected); Barbiturates Screen Detected (NotDetected); Benzodiazepine Screen Not Detected (NotDetected); Cocaine Metabolite Screen Not Detected (NotDetected); Medtox Control Line Valid? VALID (VALID); Medtox Reader # READER 1; Methadone Not Detected (NotDetected); Methamphetamine Not Detected (NotDetected); Opiate Screen Not Detected (NotDetected); Oxycodone Screen Not Detected (NotDetected); Phencyclidine (PCP) Not Detected (NotDetected); THC/Cannabinoid Screen Not Detected (NotDetected); Tricyclic Screen Not Detected (NotDetected)
[2020-07-07] MEDS ORDERED: Ibuprofen 800 MG TAB ONE (16:20)
[2020-07-07] MEDS ORDERED: levETIRAcetam 500 MG TAB PO SCH (16:30)
== END 2020-07-07 17:10 | disposition home or self-care (01) ==
LOC: ERS 13:11
DX: R56.9 Unspecified convulsions (principal); I48.91 Unspecified atrial fibrillation; K56.609 Unspecified intestinal obstruction, unspecified as to partial versus complete obstruction; F17.210 Nicotine dependence, cigarettes, uncomplicated; Z79.899 Other long term (current) drug therapy
CPT/HCPCS: 36415; 71045; 80053; 80306; 80307; 81003; 81015; 84443; 84484; 85025; 85610; 85730; 93005; 94760

== ENCOUNTER 2020-11-21 18:31 | Inpatient (IN) | payer SELFPAY ==
[2020-11-21 19:02] LABS: #Basophils 0.1 thou/uL (0.0-0.2); #Eosinphils 0.1 thou/uL (0.0-0.7); #Monocytes 0.8 thou/uL (0.11-0.59); #Neutrophils 4.8 thou/uL (1.40-6.50); %Basophils 0.9 % (0.0-1.0); %Eosinophils 0.6 % (0.0-10.0); %Lymphocytes 40.6 % (21.0-51.0); %Monocytes 8.4 % (0.0-10.0); %Neutrophils 49.5 % (42.0-75.0); Hemoglobin 14.4 g/dL (14.0-18.0); Mean Corpuscular HGB CONC 34.1 g/dL (32.0-36.0); Mean Corpuscular Hemoglobin 33.1 pg (27.0-31.0); Mean Platelet Volume 8.1 fL (7.4-10.4); Platelet Count 157 thou/uL (130-400); RBC Distribution Width 12.5 % (11.5-14.5); Red Blood Cell (RBC) Count 4.36 mill/uL (4.70-6.10); White Blood Cell (WBC) Count 9.8 thou/uL (4.8-10.8)
[2020-11-21 19:22] LABS: ALT (SGPT) 14 U/L (8-55); AST (SGOT) 23 U/L (5-34); Albumin 3.8 g/dL (3.5-5.0); Alkaline Phosphatase 229 U/L (40-110); Anion Gap 14 mmol/L (10-20); BUN (Urea Nitrogen) 6 mg/dL (8.4-25.7); Bilirubin, Total 0.5 mg/dL (0.2-1.2); Calc. Creatinine Clearance 0 mL/min (70-130); Calcium 8.9 mg/dL (7.8-10.44); Carbon Dioxide 23 mmol/L (22-29); Chloride 98 mmol/L (98-107); Globulin 3.8 g/dL (2.4-3.5); Lipase 10 U/L (8-78); Potassium 3.7 mmol/L (3.5-5.1); Protein, Total 7.6 g/dL (6.0-8.3); Sodium 131 mmol/L (136-145)
[2020-11-21 19:30] LABS: Glucose 59 mg/dL (70-105)
[2020-11-21 20:21] LABS: Bilirubin Negative (Negative); Blood, Urine Negative (Negative); Clarity Clear (Clear); Glucose, Urine (Dipstick) Normal (Negative); Ketone, Urine Negative (Negative); Leukocyte Negative Leu/uL (Negative); Nitrite Negative (Negative); Protein, Urine (Dipstick) Negative (Neg-Trace); Specific Gravity, Urine 1.006 (1.002-1.036); Urobilinogen Normal mg/dL (Less than 2); pH, Urine 6.5 (5.0-9.0)
[2020-11-21] MEDS ORDERED: Acetaminophen 325 MG TAB PO PRN (23:48)
[2020-11-21] MEDS ORDERED: Nitroglycerin 0.4 MG TAB (25 Tab Bottle) SL PRN (23:48)
[2020-11-21] MEDS ORDERED: Ondansetron PF 4 MG/2 ML Vial IVP PRN (23:48)
[2020-11-22] MEDS ORDERED: Lorazepam 2 MG/ML VIAL SLOW IVP PRN (00:28)
[2020-11-22 01:29] LABS: Troponin I Less than 0.010 ng/mL (< 0.028)
[2020-11-22 02:07] LABS: SARS-CoV-2 NAA Rapid Test Not Detected (NotDetected)
[2020-11-22 05:08] LABS: Hemoglobin A1c 5.2 % (4.0-6.0)
[2020-11-22 05:24] LABS: Anion Gap 11 mmol/L (10-20); BUN (Urea Nitrogen) 8 mg/dL (8.4-25.7); Calc. Creatinine Clearance 98 mL/min (70-130); Calcium 8.6 mg/dL (7.8-10.44); Carbon Dioxide 24 mmol/L (22-29); Chloride 101 mmol/L (98-107); Cholesterol 150 mg/dl (< 200 Desired); Glucose 88 mg/dL (70-105); HDL Cholesterol 76 mg/dL (>60 Neg Risk); LDL Cholesterol, Calculated 62 mg/dL; Potassium 4.1 mmol/L (3.5-5.1); Sodium 132 mmol/L (136-145); Triglycerides 58 mg/dL (Less than 150)
[2020-11-22 05:29] LABS: Troponin I 0.015 ng/mL (< 0.028)
[2020-11-22 05:36] LABS: Eosinophils 3 % (0-10); Hemoglobin 13.7 g/dL (14.0-18.0); Lymphocytes 58 % (21-51); MDiff Complete? YES; Mean Corpuscular HGB CONC 33.3 g/dL (32.0-36.0); Mean Corpuscular Hemoglobin 32.3 pg (27.0-31.0); Mean Corpuscular Volume 97.2 fL (78.0-98.0); Mean Platelet Volume 8.2 fL (7.4-10.4); Monocytes 3 % (0-10); Neutrophil 36 % (42-75); Platelet Count 146 thou/uL (130-400); Platelet Morphology Comment Appears Adequate; RBC Distribution Width 12.5 % (11.5-14.5); Red Blood Cell (RBC) Count 4.23 mill/uL (4.70-6.10); White Blood Cell (WBC) Count 6.5 thou/uL (4.8-10.8)
[2020-11-22 06:14] LABS: Digoxin 0.57 ng/mL (0.8-2.0)
[2020-11-22] MEDS: Multivitamin W/ Minerals 1 TAB PO SCH (09:06)
[2020-11-22] MEDS: Famotidine 20 MG TAB PO SCH ×2 (09:06→20:25)
[2020-11-22] MEDS: Apixaban 5 MG TAB PO SCH ×2 (09:06→20:25)
[2020-11-22] MEDS: Thiamine 100 MG TAB PO SCH (09:06)
[2020-11-22] MEDS: Folic Acid 1 MG TAB PO SCH (09:07)
[2020-11-22] MEDS ORDERED: Flecainide 50 MG TAB PO SCH (21:00)
[2020-11-22 21:32] LABS: INR-International Normal Ratio 1.1; Prothrombin Time 14.1 sec (12.0-14.7)
[2020-11-22] MEDS ORDERED: Warfarin Sodium 5 MG TAB PO SCH (22:00)
[2020-11-23 05:30] LABS: INR-International Normal Ratio 1.1; Prothrombin Time 14.6 sec (12.0-14.7)
[2020-11-23 05:38] LABS: Hemoglobin 13.4 g/dL (14.0-18.0); Hypochromia SLIGHT = 6-15 cells (100X) (0-5/hpf); Lymphocytes 69 % (21-51); MDiff Complete? YES; Mean Corpuscular HGB CONC 33.3 g/dL (32.0-36.0); Mean Corpuscular Hemoglobin 32.5 pg (27.0-31.0); Mean Corpuscular Volume 97.4 fL (78.0-98.0); Mean Platelet Volume 8.6 fL (7.4-10.4); Monocytes 2 % (0-10); Neutrophil 28 % (42-75); Platelet Count 148 thou/uL (130-400); Platelet Morphology Comment Appears Adequate; RBC Distribution Width 12.5 % (11.5-14.5); Reactive Lymphocytes 1 % (0-10); Red Blood Cell (RBC) Count 4.12 mill/uL (4.70-6.10); White Blood Cell (WBC) Count 6.1 thou/uL (4.8-10.8)
[2020-11-23 05:40] LABS: Anion Gap 10 mmol/L (10-20); BUN (Urea Nitrogen) 11 mg/dL (8.4-25.7); Calc. Creatinine Clearance 89 mL/min (70-130); Calcium 8.6 mg/dL (7.8-10.44); Carbon Dioxide 26 mmol/L (22-29); Chloride 102 mmol/L (98-107); Glucose 68 mg/dL (70-105); Potassium 4.1 mmol/L (3.5-5.1); Sodium 134 mmol/L (136-145)
[2020-11-23] MEDS: Folic Acid 1 MG TAB PO SCH (09:09)
[2020-11-23] MEDS: Thiamine 100 MG TAB PO SCH (09:09)
[2020-11-23] MEDS: Multivitamin W/ Minerals 1 TAB PO SCH (09:09)
[2020-11-23] MEDS: Famotidine 20 MG TAB PO SCH ×2 (09:10→21:06)
[2020-11-23] MEDS: Warfarin Sodium 5 MG TAB PO SCH (16:43)
[2020-11-23] MEDS ORDERED: Enoxaparin Sodium 80 MG/0.8 ML SYRINGE SC SCH (21:00)
[2020-11-23] MEDS: Enoxaparin Sodium 60 MG/0.6 ML SYRINGE SC SCH (21:06)
[2020-11-24 05:49] LABS: INR-International Normal Ratio 1.2; Prothrombin Time 15.3 sec (12.0-14.7)
[2020-11-24 05:56] LABS: Anion Gap 9 mmol/L (10-20); BUN (Urea Nitrogen) 12 mg/dL (8.4-25.7); Calc. Creatinine Clearance 82 mL/min (70-130); Calcium 8.1 mg/dL (7.8-10.44); Carbon Dioxide 27 mmol/L (22-29); Chloride 100 mmol/L (98-107); Glucose 80 mg/dL (70-105); Potassium 4.2 mmol/L (3.5-5.1); Sodium 132 mmol/L (136-145)
[2020-11-24 05:58] LABS: Hemoglobin 12.6 g/dL (14.0-18.0); Lymphocytes 61 % (21-51); MDiff Complete? YES; Mean Corpuscular HGB CONC 33.2 g/dL (32.0-36.0); Mean Corpuscular Hemoglobin 32.6 pg (27.0-31.0); Mean Corpuscular Volume 98.3 fL (78.0-98.0); Mean Platelet Volume 8.9 fL (7.4-10.4); Monocytes 10 % (0-10); Neutrophil 23 % (42-75); Platelet Count 123 thou/uL (130-400); Platelet Morphology Comment Appears Decreased; RBC Distribution Width 12.4 % (11.5-14.5); RBC Morphology Normal; Reactive Lymphocytes 6 % (0-10); Red Blood Cell (RBC) Count 3.86 mill/uL (4.70-6.10); White Blood Cell (WBC) Count 6.3 thou/uL (4.8-10.8)
[2020-11-24] MEDS: Enoxaparin Sodium 60 MG/0.6 ML SYRINGE SC SCH ×2 (08:50→21:26)
[2020-11-24] MEDS: Famotidine 20 MG TAB PO SCH ×2 (08:50→21:26)
[2020-11-24] MEDS: Folic Acid 1 MG TAB PO SCH (08:50)
[2020-11-24] MEDS: Multivitamin W/ Minerals 1 TAB PO SCH (08:50)
[2020-11-24] MEDS: Thiamine 100 MG TAB PO SCH (08:50)
[2020-11-24] MEDS ORDERED: Warfarin Sodium 5 MG TAB PO SCH (09:00)
[2020-11-24] MEDS: Warfarin Sodium 5 MG TAB PO SCH (16:52)
[2020-11-25 05:15] LABS: INR-International Normal Ratio 1.7; Prothrombin Time 20.3 sec (12.0-14.7)
[2020-11-25] MEDS: Thiamine 100 MG TAB PO SCH (07:54)
[2020-11-25] MEDS: Multivitamin W/ Minerals 1 TAB PO SCH (07:54)
[2020-11-25] MEDS: Enoxaparin Sodium 60 MG/0.6 ML SYRINGE SC SCH ×2 (07:55→20:32)
[2020-11-25] MEDS: Folic Acid 1 MG TAB PO SCH (07:55)
[2020-11-25] MEDS: Famotidine 20 MG TAB PO SCH ×2 (07:55→20:32)
[2020-11-25 11:31] VITALS: BMI 18.3
[2020-11-25] MEDS: Warfarin Sodium 5 MG TAB PO SCH (16:35)
[2020-11-26 05:39] LABS: Hemoglobin 12.3 g/dL (14.0-18.0); Mean Corpuscular HGB CONC 32.2 g/dL (32.0-36.0); Mean Corpuscular Hemoglobin 31.7 pg (27.0-31.0); Mean Corpuscular Volume 98.3 fL (78.0-98.0); Mean Platelet Volume 9.1 fL (7.4-10.4); Platelet Count 125 thou/uL (130-400); RBC Distribution Width 12.6 % (11.5-14.5); Red Blood Cell (RBC) Count 3.88 mill/uL (4.70-6.10); White Blood Cell (WBC) Count 5.5 thou/uL (4.8-10.8)
[2020-11-26 05:43] LABS: INR-International Normal Ratio 2.4; Prothrombin Time 26.3 sec (12.0-14.7)
[2020-11-26 05:51] LABS: Anion Gap 9 mmol/L (10-20); BUN (Urea Nitrogen) 13 mg/dL (8.4-25.7); Calc. Creatinine Clearance 94 mL/min (70-130); Calcium 8.4 mg/dL (7.8-10.44); Carbon Dioxide 29 mmol/L (22-29); Chloride 103 mmol/L (98-107); Glucose 85 mg/dL (70-105); Potassium 4.4 mmol/L (3.5-5.1); Sodium 137 mmol/L (136-145)
[2020-11-26 06:48] LABS: Lymphocytes 64 % (21-51); MDiff Complete? YES; Monocytes 12 % (0-10); Neutrophil 23 % (42-75); Reactive Lymphocytes 1 % (0-10)
[2020-11-26 08:17] VITALS: BP 112/77; TEMP 98
[2020-11-26] MEDS: Folic Acid 1 MG TAB PO SCH (09:19)
[2020-11-26] MEDS: Multivitamin W/ Minerals 1 TAB PO SCH (09:19)
[2020-11-26] MEDS: Thiamine 100 MG TAB PO SCH (09:19)
[2020-11-26] MEDS: Famotidine 20 MG TAB PO SCH (09:19)
[2020-11-26] MEDS: Enoxaparin Sodium 60 MG/0.6 ML SYRINGE SC SCH (11:05)
== END 2020-11-26 12:16 | disposition home or self-care (01) | DRG 309 ==
LOC: ERS 18:31 → ERHOLD 21:39 → 2SE 11-22 00:49 → OBSVTOIN 11-22 13:30
PROVIDERS: ADMIT Internal Medicine; ATTEND Internal Medicine
DX: I48.0 Paroxysmal atrial fibrillation (principal); E87.1 Hypo-osmolality and hyponatremia; E44.0 Moderate protein-calorie malnutrition; Z68.1 Body mass index [BMI] 19.9 or less, adult; I50.22 Chronic systolic (congestive) heart failure; I05.0 Rheumatic mitral stenosis; I48.92 Unspecified atrial flutter; R07.89 Other chest pain; R00.1 Bradycardia, unspecified; Z20.822 Contact with and (suspected) exposure to COVID-19; G40.909 Epilepsy, unspecified, not intractable, without status epilepticus; F10.10 Alcohol abuse, uncomplicated; I35.0 Nonrheumatic aortic (valve) stenosis; J44.9 Chronic obstructive pulmonary disease, unspecified; F17.210 Nicotine dependence, cigarettes, uncomplicated; Z88.6 Allergy status to analgesic agent; Z79.01 Long term (current) use of anticoagulants; Z91.041 Radiographic dye allergy status; Z79.899 Other long term (current) drug therapy
CPT/HCPCS: 0240U; 36415; 36416; 71045; 78452; 80048; 80053; 80061; 80162; 81003; 83036; 83690; 83880; 84484; 85025; 85610; 93005; 93017; 93306; A9500; G0378; J1650

== ENCOUNTER 2021-09-28 20:08 | Emergency (ER) | payer SELFPAY ==
[2021-09-28 21:40] LABS: ALT (SGPT) 18 U/L (8-55); AST (SGOT) 27 U/L (5-34); Albumin 3.6 g/dL (3.5-5.0); Alkaline Phosphatase 191 U/L (40-110); Anion Gap 13 mmol/L (10-20); BUN (Urea Nitrogen) 10 mg/dL (8.4-25.7); Bilirubin, Total 0.4 mg/dL (0.2-1.2); Calc. Creatinine Clearance 0 mL/min (70-130); Calcium 8.7 mg/dL (7.8-10.44); Carbon Dioxide 22 mmol/L (22-29); Chloride 102 mmol/L (98-107); Globulin 3.7 g/dL (2.4-3.5); Glucose 86 mg/dL (70-105); Magnesium 1.9 mg/dL (1.6-2.6); Potassium 4.2 mmol/L (3.5-5.1); Protein, Total 7.3 g/dL (6.0-8.3); Sodium 133 mmol/L (136-145)
[2021-09-28 21:44] LABS: Mean Corpuscular HGB CONC 32.6 g/dL (32.0-36.0); Mean Corpuscular Hemoglobin 31.6 pg (27.0-31.0); Mean Corpuscular Volume 96.8 fL (78.0-98.0); Mean Platelet Volume 7.8 fL (7.4-10.4); Platelet Count 155 thou/uL (130-400); RBC Distribution Width 12.1 % (11.5-14.5); Red Blood Cell (RBC) Count 4.74 mill/uL (4.70-6.10)
[2021-09-28 22:22] LABS: #Basophils 0.1 thou/uL (0.0-0.2); #Eosinphils 0.1 thou/uL (0.0-0.7); #Lymphocytes 2.9 thou/uL (1.20-3.40); #Monocytes 0.8 thou/uL (0.11-0.59); #Neutrophils 3.1 thou/uL (1.40-6.50); %Eosinophils 1.7 % (0.0-10.0); %Lymphocytes 41.2 % (21.0-51.0); %Monocytes 11.1 % (0.0-10.0)
[2021-09-28 22:23] LABS: RBC Morphology Normal
== END 2021-09-29 00:38 | disposition short-term general hospital (02) ==
LOC: ERS 20:08
DX: R07.9 Chest pain, unspecified (principal); I48.91 Unspecified atrial fibrillation; F17.210 Nicotine dependence, cigarettes, uncomplicated; Z87.19 Personal history of other diseases of the digestive system; Z79.01 Long term (current) use of anticoagulants; Z79.899 Other long term (current) drug therapy
CPT/HCPCS: 36415; 71045; 80053; 83735; 84484; 85025; 93005

== ENCOUNTER 2021-11-15 18:24 | Emergency (ER) | payer SELFPAY | END 2021-11-15 20:00 | disposition left against medical advice (07) | LOC: ERS 18:24 | DX: Z53.21 Procedure and treatment not carried out due to patient leaving prior to being seen by health care provider (principal) ==

== ENCOUNTER 2022-03-13 18:50 | Emergency (ER) | payer SELFPAY ==
[2022-03-13 19:34] LABS: #Basophils 0.1 thou/uL (0.0-0.2); #Eosinphils 0.1 thou/uL (0.0-0.7); #Lymphocytes 2.9 thou/uL (1.20-3.40); #Monocytes 0.5 thou/uL (0.11-0.59); #Neutrophils 2.3 thou/uL (1.40-6.50); %Basophils 1.1 % (0.0-1.0); %Eosinophils 1.1 % (0.0-10.0); %Lymphocytes 49.9 % (21.0-51.0); %Monocytes 8.8 % (0.0-10.0); %Neutrophils 39.1 % (42.0-75.0); Hemoglobin 12.8 g/dL (14.0-18.0); Mean Corpuscular HGB CONC 32.8 g/dL (32.0-36.0); Mean Corpuscular Hemoglobin 32.2 pg (27.0-31.0); Mean Platelet Volume 8.2 fL (7.4-10.4); Platelet Count 185 10x3/uL (130-400); RBC Distribution Width 12.8 % (11.5-14.5); Red Blood Cell (RBC) Count 3.98 mill/uL (4.70-6.10); White Blood Cell (WBC) Count 5.9 10x3/uL (4.8-10.8)
[2022-03-13 19:58] LABS: ALT (SGPT) 10 U/L (8-55); AST (SGOT) 18 U/L (5-34); Albumin 3.7 g/dL (3.5-5.0); Alkaline Phosphatase 285 U/L (40-110); Anion Gap 12 mmol/L (10-20); BUN (Urea Nitrogen) 9 mg/dL (8.4-25.7); Bilirubin, Total 0.4 mg/dL (0.2-1.2); Calc. Creatinine Clearance 0 mL/min (70-130); Calcium 8.8 mg/dL (7.8-10.44); Carbon Dioxide 21 mmol/L (22-29); Chloride 102 mmol/L (98-107); Estimated GFR 94; Glucose 82 mg/dL (70-105); Lipase 26 U/L (8-78); Protein, Total 7.7 g/dL (6.0-8.3); Sodium 131 mmol/L (136-145)
[2022-03-13] MEDS ORDERED: Metoprolol Tartrate 25 MG TAB ONE (20:07)
[2022-03-13 20:11] LABS: Magnesium 2.1 mg/dL (1.6-2.6)
[2022-03-13] MEDS ORDERED: Metoprolol Tartrate 5 MG/5 ML VIAL ONE (20:13)
[2022-03-13 20:44] LABS: Prothrombin Time 141.1 sec (12.0-14.7)
[2022-03-13 20:49] LABS: INR-International Normal Ratio 19.1; PTT 176.8 sec (22.9-36.1)
[2022-03-13] MEDS ORDERED: Phytonadione 5 MG TAB PO SCH (21:45)
[2022-03-13 21:56] LABS: Bacteria/HPF 3+ HPF (None Seen); Bilirubin Negative (Negative); Blood, Urine 3+ (Negative); Clarity Turbid (Clear); Glucose, Urine (Dipstick) Normal (Negative); Ketone, Urine Negative (Negative); Leukocyte Negative Leu/uL (Negative); Nitrite Negative (Negative); Protein, Urine (Dipstick) 30 mg/dL (Neg-Trace); RBC/HPF Greater than 50 HPF (0-3); Specific Gravity, Urine 1.007 (1.002-1.036); Squamous Epithelial 0-3 HPF (0-3); Urobilinogen Normal mg/dL (Less than 2); pH, Urine 5.5 (5.0-9.0)
== END 2022-03-13 22:43 | disposition home or self-care (01) ==
LOC: ERS 18:50
DX: D68.9 Coagulation defect, unspecified (principal); I48.91 Unspecified atrial fibrillation; R31.0 Gross hematuria; M79.671 Pain in right foot; F17.210 Nicotine dependence, cigarettes, uncomplicated; Z79.01 Long term (current) use of anticoagulants
CPT/HCPCS: 36415; 71045; 80053; 81003; 81015; 83690; 83735; 84443; 84484; 85025; 85610; 85730; 93005

== ENCOUNTER 2022-06-16 15:42 | Inpatient (IN) | payer SELFPAY ==
[2022-06-16] MEDS ORDERED: HUMAN PROTHROMBIN COMPLX IV SCH (16:15)
[2022-06-16] MEDS ORDERED: HUM PROTHROMBIN CPLX IV SCH (16:15)
[2022-06-16] MEDS ORDERED: [UNRECOGNIZED DRUG - OTHER] IV SCH (16:15)
[2022-06-16 16:29] LABS: #Basophils 0.1 thou/uL (0.0-0.2); #Lymphocytes 2.8 thou/uL (1.20-3.40); #Monocytes 0.6 thou/uL (0.11-0.59); #Neutrophils 3.7 thou/uL (1.40-6.50); %Basophils 0.9 % (0.0-1.0); %Eosinophils 0.3 % (0.0-10.0); %Lymphocytes 38.9 % (21.0-51.0); %Monocytes 8.5 % (0.0-10.0); %Neutrophils 51.4 % (42.0-75.0); Hemoglobin 11.7 g/dL (14.0-18.0); Mean Corpuscular HGB CONC 32.5 g/dL (32.0-36.0); Mean Corpuscular Hemoglobin 31.6 pg (27.0-31.0); Mean Platelet Volume 8.6 fL (7.4-10.4); Platelet Count 151 10x3/uL (130-400); RBC Distribution Width 14.1 % (11.5-14.5); White Blood Cell (WBC) Count 7.2 10x3/uL (4.8-10.8)
[2022-06-16] MEDS ORDERED: Octreotide Acetate 1,250 MCG in Sodium Chloride 0.9% 250 ML 250 ML IVPB SCH (16:30)
[2022-06-16 16:38] LABS: INR-International Normal Ratio 4.2; PTT 49.8 sec (22.9-36.1); Prothrombin Time 42.3 sec (12.0-14.7)
[2022-06-16] MEDS ORDERED: Octreotide Acetate 50 MCG/ML AMP SLOW IVP SCH (16:45)
[2022-06-16 16:50] LABS: ALT (SGPT) 12 U/L (8-55); AST (SGOT) 24 U/L (5-34); Albumin 3.8 g/dL (3.5-5.0); Alkaline Phosphatase 250 U/L (40-110); Anion Gap 16 mmol/L (10-20); BUN (Urea Nitrogen) 7 mg/dL (8.4-25.7); Bilirubin, Total 0.8 mg/dL (0.2-1.2); CK (CPK) 127 U/L (30-200); Calc. Creatinine Clearance 0 mL/min (70-130); Calcium 8.3 mg/dL (7.8-10.44); Carbon Dioxide 20 mmol/L (22-29); Chloride 104 mmol/L (98-107); Estimated GFR 103; Globulin 3.9 g/dL (2.4-3.5); Glucose 98 mg/dL (70-105); Lipase 12 U/L (8-78); Potassium 4.6 mmol/L (3.5-5.1); Protein, Total 7.7 g/dL (6.0-8.3); Sodium 135 mmol/L (136-145)
[2022-06-16] MEDS ORDERED: Octreotide Acetate 100 MCG/ML VIAL ONE (17:08)
[2022-06-16] MEDS ORDERED: Multivitamins, Adult 10 ML, Thiamine HCl 100 MG, Folic Acid 1 MG in Dextrose 5 %-0.45 %... IV SCH (17:15)
[2022-06-16] MEDS ORDERED: Thiamine HCl 200 MG/2 ML VIAL SLOW IVP SCH (17:15)
[2022-06-16] MEDS ORDERED: Folic Acid 1 MG, Multivitamins, Adult 10 ML in Dextrose 5 %-0.45 % NaCl 1,000 ML IV SCH (17:15)
[2022-06-16] MEDS ORDERED: cefTRIAXone\\ROCEPHIN 1 GM VIAL ONE (18:37)
[2022-06-16] MEDS ORDERED: Azithromycin 500 MG VIAL ONE (18:37)
[2022-06-16 19:30] LABS: SARS-CoV-2 NAA Rapid Test Not Detected (NotDetected)
[2022-06-16 20:00] LABS: Phosphorus 3.2 mg/dL (2.3-4.7)
[2022-06-16 20:05] LABS: Lactic Acid 2.4 mmol/L (0.5-2.2)
[2022-06-16 20:19] LABS: Thyroid Stimulating Hormone 0.6998 uIU/mL (0.35-4.94)
[2022-06-16] MEDS: Acetaminophen 500 MG TAB PO PRN (22:12)
[2022-06-16] MEDS ORDERED: Ondansetron PF 4 MG/2 ML Vial IVP SCH (22:15)
[2022-06-16 22:46] LABS: HIV (1/2) Antibody/Antigen Non-Reactive (NonReactive); HIV 1/2 INDEX 0.18 S/CO (<1.00)
[2022-06-16 23:05] VITALS: BMI 21.7
[2022-06-16] MEDS: Nicotine 14 MG PATCH TD SCH (23:30)
[2022-06-16] MEDS: Thiamine HCl 200 MG/2 ML VIAL SLOW IVP SCH (23:30)
[2022-06-17 01:02] LABS: Hemoglobin 9.9 g/dL (14.0-18.0)
[2022-06-17 02:23] LABS: Bilirubin Negative (Negative); Blood, Urine Negative (Negative); Clarity Clear (Clear); Glucose, Urine (Dipstick) Normal (Negative); Ketone, Urine Negative (Negative); Leukocyte Negative Leu/uL (Negative); Nitrite Negative (Negative); Protein, Urine (Dipstick) 10 mg/dL (Neg-Trace); Specific Gravity, Urine 1.017 (1.002-1.036); Urobilinogen Normal mg/dL (Less than 2); pH, Urine 5.5 (5.0-9.0)
[2022-06-17] MEDS: Benzonatate 100 MG CAP PO PRN ×2 (03:01→12:31)
[2022-06-17] MEDS: Acetaminophen 500 MG TAB PO PRN ×3 (05:49→22:08)
[2022-06-17 05:54] LABS: #Basophils 0.1 thou/uL (0.0-0.2); #Lymphocytes 2.8 thou/uL (1.20-3.40); #Monocytes 0.6 thou/uL (0.11-0.59); #Neutrophils 2.3 thou/uL (1.40-6.50); %Basophils 1.4 % (0.0-1.0); %Eosinophils 0.4 % (0.0-10.0); %Lymphocytes 48.4 % (21.0-51.0); %Monocytes 9.7 % (0.0-10.0); %Neutrophils 40.1 % (42.0-75.0); Mean Corpuscular Hemoglobin 31.7 pg (27.0-31.0); Mean Platelet Volume 8.5 fL (7.4-10.4); Platelet Count 134 10x3/uL (130-400); RBC Distribution Width 13.9 % (11.5-14.5); Red Blood Cell (RBC) Count 3.15 mill/uL (4.70-6.10); White Blood Cell (WBC) Count 5.7 10x3/uL (4.8-10.8)
[2022-06-17 06:01] LABS: INR-International Normal Ratio 2.5; PTT 45.8 sec (22.9-36.1); Prothrombin Time 28.2 sec (12.0-14.7)
[2022-06-17 06:08] LABS: Anion Gap 14 mmol/L (10-20); BUN (Urea Nitrogen) 11 mg/dL (8.4-25.7); Calc. Creatinine Clearance 108 mL/min (70-130); Calcium 7.5 mg/dL (7.8-10.44); Carbon Dioxide 20 mmol/L (22-29); Chloride 100 mmol/L (98-107); Estimated GFR 103; Glucose 86 mg/dL (70-105); Potassium 4.7 mmol/L (3.5-5.1); Sodium 129 mmol/L (136-145)
[2022-06-17 09:14] LABS: Hemoglobin 9.8 g/dL (14.0-18.0)
[2022-06-17 09:27] LABS: Lactic Acid 1.7 mmol/L (0.5-2.2)
[2022-06-17] MEDS: Folic Acid 1 MG TAB PO SCH (09:30)
[2022-06-17] MEDS: Multivit, Therapeutic 1 TAB PO SCH (09:30)
[2022-06-17 11:17] LABS: Amphetamine Not Detected (NotDetected); Barbiturates Screen Detected (NotDetected); Benzodiazepine Screen Not Detected (NotDetected); Cocaine Metabolite Screen Not Detected (NotDetected); Methadone Not Detected (NotDetected); Methamphetamine Not Detected (NotDetected); Opiate Screen Not Detected (NotDetected); Oxycodone Screen Not Detected (NotDetected); Phencyclidine (PCP) Not Detected (NotDetected); THC/Cannabinoid Screen Not Detected (NotDetected); Tricyclic Screen Not Detected (NotDetected)
[2022-06-17] MEDS ORDERED: AFRIN NASAL MIST 15 ML BOT NS SCH ×2 (14:45→21:00)
[2022-06-17] MEDS ORDERED: Sodium Chloride 0.65% Nasal 44 ML BOT EA NARE PRN (15:15)
[2022-06-17] MEDS ORDERED: Sodium Chloride Nasal 15 GM TUBE EA NARE PRN (15:15)
[2022-06-17] MEDS ORDERED: Oxymetazoline HCl 0.05% (30 ML BOT) NS SCH (15:30)
[2022-06-17] MEDS: Nicotine 14 MG PATCH TD SCH (17:03)
[2022-06-17 17:17] LABS: INR-International Normal Ratio 1.9; PTT 39.6 sec (22.9-36.1)
[2022-06-17] MEDS: HYDROcodone/Chlorphen Polis 5 ML UDCUP PO PRN (17:26)
[2022-06-17] MEDS: Oxymetazoline HCl 0.05% (30 ML BOT) NS SCH (21:17)
[2022-06-17] MEDS: Thiamine HCl 200 MG/2 ML VIAL SLOW IVP SCH (21:18)
[2022-06-17] MEDS: Tranexamic Acid 650 MG TAB PO SCH (21:19)
[2022-06-17] MEDS: Azithromycin 500 MG in Sodium Chloride 0.9% 250 ML 250 ML IVPB SCH (21:20)
[2022-06-17] MEDS: cefTRIAXone\\ROCEPHIN 1 GM in Sodium Chloride 0.9% 100 ML IVPB SCH (21:24)
[2022-06-18 05:08] LABS: #Eosinphils 0.1 thou/uL (0.0-0.7); #Lymphocytes 1.7 thou/uL (1.20-3.40); #Monocytes 0.3 thou/uL (0.11-0.59); #Neutrophils 2.7 thou/uL (1.40-6.50); %Basophils 0.6 % (0.0-1.0); %Eosinophils 2.4 % (0.0-10.0); %Lymphocytes 34.2 % (21.0-51.0); %Monocytes 6.6 % (0.0-10.0); %Neutrophils 56.1 % (42.0-75.0); Hemoglobin 8.8 g/dL (14.0-18.0); Mean Corpuscular HGB CONC 32.8 g/dL (32.0-36.0); Mean Corpuscular Hemoglobin 32.1 pg (27.0-31.0); Mean Corpuscular Volume 97.8 fl (78.0-98.0); Mean Platelet Volume 8.4 fL (7.4-10.4); Platelet Count 126 10x3/uL (130-400); RBC Distribution Width 13.6 % (11.5-14.5); Red Blood Cell (RBC) Count 2.74 mill/uL (4.70-6.10); White Blood Cell (WBC) Count 4.9 10x3/uL (4.8-10.8)
[2022-06-18 05:35] LABS: Anion Gap 11 mmol/L (10-20); BUN (Urea Nitrogen) 9 mg/dL (8.4-25.7); Calc. Creatinine Clearance 115 mL/min (70-130); Calcium 7.5 mg/dL (7.8-10.44); Carbon Dioxide 20 mmol/L (22-29); Chloride 103 mmol/L (98-107); Estimated GFR 105; Glucose 86 mg/dL (70-105); Sodium 130 mmol/L (136-145)
[2022-06-18] MEDS: Multivit, Therapeutic 1 TAB PO SCH (07:44)
[2022-06-18] MEDS: Oxymetazoline HCl 0.05% (30 ML BOT) NS SCH ×2 (07:44→20:52)
[2022-06-18] MEDS: Folic Acid 1 MG TAB PO SCH (07:44)
[2022-06-18] MEDS: Tranexamic Acid 650 MG TAB PO SCH ×3 (08:41→20:53)
[2022-06-18 12:43] LABS: INR-International Normal Ratio 1.9; Prothrombin Time 22.4 sec (12.0-14.7)
[2022-06-18 12:44] LABS: PTT 40.2 sec (22.9-36.1)
[2022-06-18] MEDS: HYDROcodone/Chlorphen Polis 5 ML UDCUP PO PRN (16:43)
[2022-06-18] MEDS: Warfarin Sodium 2.5 MG TAB PO SCH (16:43)
[2022-06-18] MEDS: Nicotine 14 MG PATCH TD SCH (16:44)
[2022-06-18] MEDS: levETIRAcetam 500 MG TAB PO SCH (20:52)
[2022-06-18] MEDS: cefTRIAXone\\ROCEPHIN 1 GM in Sodium Chloride 0.9% 100 ML IVPB SCH (20:53)
[2022-06-18] MEDS: Azithromycin 500 MG in Sodium Chloride 0.9% 250 ML 250 ML IVPB SCH (20:54)
[2022-06-18] MEDS: Thiamine HCl 200 MG/2 ML VIAL SLOW IVP SCH (20:54)
[2022-06-18] MEDS ORDERED: Non-Formulary Item 1 EACH (Levetiracetam [Keppra] 250 MG Tab) PO SCH (21:00)
[2022-06-18] MEDS ORDERED: Metoprolol Tartrate 25 MG TAB PO SCH (21:00)
[2022-06-18] MEDS: Acetaminophen 500 MG TAB PO PRN (23:44)
[2022-06-19 05:57] LABS: #Eosinphils 0.1 thou/uL (0.0-0.7); #Lymphocytes 1.6 thou/uL (1.20-3.40); #Monocytes 0.4 thou/uL (0.11-0.59); %Basophils 0.3 % (0.0-1.0); %Eosinophils 2.5 % (0.0-10.0); %Lymphocytes 31.7 % (21.0-51.0); %Monocytes 7.9 % (0.0-10.0); %Neutrophils 57.7 % (42.0-75.0); Mean Corpuscular Hemoglobin 32.2 pg (27.0-31.0); Mean Corpuscular Volume 97.5 fl (78.0-98.0); Mean Platelet Volume 8.8 fL (7.4-10.4); Platelet Count 132 10x3/uL (130-400); Red Blood Cell (RBC) Count 2.79 mill/uL (4.70-6.10); White Blood Cell (WBC) Count 5.1 10x3/uL (4.8-10.8)
[2022-06-19 06:00] LABS: Prothrombin Time 23.6 sec (12.0-14.7)
[2022-06-19 06:31] LABS: Anion Gap 10 mmol/L (10-20); BUN (Urea Nitrogen) 9 mg/dL (8.4-25.7); Calc. Creatinine Clearance 106 mL/min (70-130); Carbon Dioxide 20 mmol/L (22-29); Chloride 107 mmol/L (98-107); Estimated GFR 104; Glucose 86 mg/dL (70-105); Potassium 3.8 mmol/L (3.5-5.1); Sodium 133 mmol/L (136-145)
[2022-06-19] MEDS: levETIRAcetam 500 MG TAB PO SCH ×2 (09:16→20:02)
[2022-06-19] MEDS: Folic Acid 1 MG TAB PO SCH (09:16)
[2022-06-19] MEDS: Oxymetazoline HCl 0.05% (30 ML BOT) NS SCH ×2 (09:17→20:03)
[2022-06-19] MEDS: Tranexamic Acid 650 MG TAB PO SCH (09:17)
[2022-06-19] MEDS: Multivit, Therapeutic 1 TAB PO SCH (09:17)
[2022-06-19] MEDS: Acetaminophen 500 MG TAB PO PRN ×2 (11:37→20:34)
[2022-06-19 12:02] LABS: ALT (SGPT) 11 U/L (8-55); AST (SGOT) 25 U/L (5-34); Albumin 3.1 g/dL (3.5-5.0); Alkaline Phosphatase 177 U/L (40-110); Bilirubin, Direct 0.4 mg/dL (0.1-0.3); Bilirubin, Total 0.6 mg/dL (0.2-1.2); Protein, Total 6.1 g/dL (6.0-8.3)
[2022-06-19] MEDS: Warfarin Sodium 2.5 MG TAB PO SCH (18:35)
[2022-06-19] MEDS: Nicotine 14 MG PATCH TD SCH (18:48)
[2022-06-19] MEDS: Thiamine 100 MG TAB PO SCH (20:02)
[2022-06-19] MEDS: cefTRIAXone\\ROCEPHIN 1 GM in Sodium Chloride 0.9% 100 ML IVPB SCH (20:33)
[2022-06-19] MEDS: Azithromycin 500 MG in Sodium Chloride 0.9% 250 ML 250 ML IVPB SCH (20:33)
[2022-06-19] MEDS ORDERED: Melatonin 3 MG TAB PO PRN (22:28)
[2022-06-20 05:19] LABS: #Eosinphils 0.2 thou/uL (0.0-0.7); #Lymphocytes 1.4 thou/uL (1.20-3.40); #Monocytes 0.4 thou/uL (0.11-0.59); #Neutrophils 2.5 thou/uL (1.40-6.50); %Basophils 0.4 % (0.0-1.0); %Eosinophils 3.6 % (0.0-10.0); %Lymphocytes 31.7 % (21.0-51.0); %Monocytes 8.5 % (0.0-10.0); %Neutrophils 55.8 % (42.0-75.0); Mean Corpuscular HGB CONC 32.5 g/dL (32.0-36.0); Mean Corpuscular Hemoglobin 31.7 pg (27.0-31.0); Mean Corpuscular Volume 97.6 fl (78.0-98.0); Mean Platelet Volume 8.5 fL (7.4-10.4); Platelet Count 139 10x3/uL (130-400); RBC Distribution Width 14.1 % (11.5-14.5); Red Blood Cell (RBC) Count 2.85 mill/uL (4.70-6.10); White Blood Cell (WBC) Count 4.5 10x3/uL (4.8-10.8)
[2022-06-20 05:26] LABS: INR-International Normal Ratio 1.9; Prothrombin Time 22.8 sec (12.0-14.7)
[2022-06-20 05:39] LABS: Anion Gap 11 mmol/L (10-20); BUN (Urea Nitrogen) 9 mg/dL (8.4-25.7); Calc. Creatinine Clearance 111 mL/min (70-130); Calcium 7.9 mg/dL (7.8-10.44); Carbon Dioxide 20 mmol/L (22-29); Chloride 105 mmol/L (98-107); Estimated GFR 104; Glucose 89 mg/dL (70-105); Potassium 3.9 mmol/L (3.5-5.1); Sodium 132 mmol/L (136-145)
[2022-06-20] MEDS: Folic Acid 1 MG TAB PO SCH (10:22)
[2022-06-20] MEDS: levETIRAcetam 500 MG TAB PO SCH ×2 (10:22→21:17)
[2022-06-20] MEDS: Oxymetazoline HCl 0.05% (30 ML BOT) NS SCH ×2 (10:23→20:16)
[2022-06-20] MEDS: Multivit, Therapeutic 1 TAB PO SCH ×2 (10:23→10:32)
[2022-06-20] MEDS ORDERED: Silver Nitrate Application 1 EACH ONE (11:18)
[2022-06-20] MEDS ORDERED: Oxymetazoline HCl 0.05% (30 ML BOT) ONE (11:18)
[2022-06-20 13:16] LABS: ANA Symphony (Qualitative) Negative (Negative); ANA Symphony (Quantitative) 0.5 Ratio (< 0.7 Negative)
[2022-06-20] MEDS ORDERED: Warfarin Sodium 3 MG TAB PO SCH (17:00)
[2022-06-20] MEDS: Nicotine 14 MG PATCH TD SCH (18:39)
[2022-06-20 20:08] LABS: QuantiFERON-TB Gold Plus Negative (Negative)
[2022-06-20] MEDS: Azithromycin 500 MG in Sodium Chloride 0.9% 250 ML 250 ML IVPB SCH (20:14)
[2022-06-20] MEDS: Thiamine 100 MG TAB PO SCH (20:14)
[2022-06-20] MEDS: cefTRIAXone\\ROCEPHIN 1 GM in Sodium Chloride 0.9% 100 ML IVPB SCH (21:17)
[2022-06-21 04:58] LABS: #Eosinphils 0.2 thou/uL (0.0-0.7); #Lymphocytes 1.8 thou/uL (1.20-3.40); #Monocytes 0.6 thou/uL (0.11-0.59); #Neutrophils 2.9 thou/uL (1.40-6.50); %Basophils 0.1 % (0.0-1.0); %Lymphocytes 33.4 % (21.0-51.0); %Monocytes 11.5 % (0.0-10.0); Hemoglobin 9.2 g/dL (14.0-18.0); Mean Corpuscular HGB CONC 32.3 g/dL (32.0-36.0); Mean Corpuscular Hemoglobin 31.6 pg (27.0-31.0); Mean Corpuscular Volume 97.8 fl (78.0-98.0); Mean Platelet Volume 8.4 fL (7.4-10.4); Platelet Count 151 10x3/uL (130-400); RBC Distribution Width 14.1 % (11.5-14.5); White Blood Cell (WBC) Count 5.5 10x3/uL (4.8-10.8)
[2022-06-21 05:11] LABS: INR-International Normal Ratio 1.6
[2022-06-21 05:17] LABS: Anion Gap 11 mmol/L (10-20); BUN (Urea Nitrogen) 7 mg/dL (8.4-25.7); Calc. Creatinine Clearance 108 mL/min (70-130); Calcium 8.3 mg/dL (7.8-10.44); Carbon Dioxide 21 mmol/L (22-29); Chloride 106 mmol/L (98-107); Estimated GFR 104; Glucose 87 mg/dL (70-105); Sodium 134 mmol/L (136-145)
[2022-06-21] MEDS: Oxymetazoline HCl 0.05% (30 ML BOT) NS SCH (08:23)
[2022-06-21] MEDS: Folic Acid 1 MG TAB PO SCH (08:23)
[2022-06-21] MEDS: Multivit, Therapeutic 1 TAB PO SCH (08:23)
[2022-06-21] MEDS: levETIRAcetam 500 MG TAB PO SCH (08:23)
[2022-06-21 09:03] VITALS: BP 122/77; TEMP 98.8
== END 2022-06-21 13:30 | disposition home or self-care (01) | DRG 193 ==
LOC: ERS 15:42 → 2NO 17:25 → 2SW 22:53
PROVIDERS: ADMIT Family Medicine; ATTEND Family Medicine
PROC: 30283B1 Transfusion of Nonautologous 4-Factor Prothrombin Complex Concentrate into Vein, Percutaneous Approach (ICD-10-PCS; principal; 2022-06-16)
PROC: 093K7ZZ Control Bleeding in Nasal Mucosa and Soft Tissue, Via Natural or Artificial Opening (ICD-10-PCS; 2022-06-21)
DX: J18.9 Pneumonia, unspecified organism (principal); J96.01 Acute respiratory failure with hypoxia; R04.2 Hemoptysis; I50.22 Chronic systolic (congestive) heart failure; E87.1 Hypo-osmolality and hyponatremia; J44.0 Chronic obstructive pulmonary disease with (acute) lower respiratory infection; I42.9 Cardiomyopathy, unspecified; I48.21 Permanent atrial fibrillation; D68.9 Coagulation defect, unspecified; I48.92 Unspecified atrial flutter; R04.0 Epistaxis; J34.2 Deviated nasal septum; G40.909 Epilepsy, unspecified, not intractable, without status epilepticus; F17.210 Nicotine dependence, cigarettes, uncomplicated; E83.41 Hypermagnesemia; Z20.822 Contact with and (suspected) exposure to COVID-19; M32.9 Systemic lupus erythematosus, unspecified; I08.0 Rheumatic disorders of both mitral and aortic valves; I95.9 Hypotension, unspecified; F10.10 Alcohol abuse, uncomplicated; Z71.6 Tobacco abuse counseling; Z88.8 Allergy status to other drugs, medicaments and biological substances; Z91.14 Patient's other noncompliance with medication regimen; Z79.899 Other long term (current) drug therapy; Z79.01 Long term (current) use of anticoagulants; Z98.890 Other specified postprocedural states; Z88.6 Allergy status to analgesic agent; Z91.041 Radiographic dye allergy status
CPT/HCPCS: 36415; 36416; 71045; 71250; 76705; 80048; 80053; 80076; 80306; 81003; 82550; 82977; 83605; 83690; 83735; 83880; 84100; 84145; 84443; 84484; 85014; 85018; 85025; 85379; 85610; 85730; 86038; 86225; 86480; 86850; 86900; 86901; 87040; 87205; 87389; 93005; 93306; 96365; 96366; 96368; 96375; J0456; J0696; J2354; J3411; J3490; J7042; J7050; J7168

== ENCOUNTER 2022-10-11 09:39 | Outpatient (CLI) | payer OTHER | END 2022-10-11 09:40 | disposition home or self-care (01) | LOC: BICRAD 09:39 | PROVIDERS: ATTEND Internal Medicine | DX: Z02.71 Encounter for disability determination (principal) | CPT/HCPCS: 71046 ==

== ENCOUNTER 2024-01-30 23:02 | Observation (INO) | payer OTHER, SELFPAY ==
[2024-01-31 00:02] LABS: #Basophils 0.06 10x3/uL (0.0-0.2); %Basophils 0.9 % (0.0-1.0); %Eosinophils 1.6 % (0.0-10.0); %Lymphocytes 49.2 % (21.0-51.0); %Monocytes 9.9 % (0.0-10.0); %Neutrophils 38.3 % (42.0-75.0); Hematocrit 44.3 % (42.0-52.0); Hemoglobin 14.4 g/dL (14.0-18.0); Mean Corpuscular HGB CONC 32.5 g/dL (32.0-36.0); Mean Corpuscular Hemoglobin 29.6 pg (27.0-31.0); Mean Corpuscular Volume 91.2 fL (78.0-98.0); Mean Platelet Volume 10.5 fL (7.4-10.4); Platelet Count 148 10x3/uL (130-400); RBC Distribution Width 14.3 % (11.5-14.5); Red Blood Cell (RBC) Count 4.86 mill/uL (4.70-6.10)
[2024-01-31 00:31] LABS: ALT (SGPT) 12 U/L (8-55); AST (SGOT) 15 U/L (5-34); Albumin 3.9 g/dL (3.5-5.0); Alkaline Phosphatase 99 U/L (40-110); Anion Gap 12 mmol/L (10-20); BUN (Urea Nitrogen) 11 mg/dL (8.4-25.7); Bilirubin, Total 0.4 mg/dL (0.2-1.2); Calc. Creatinine Clearance 0 mL/min (70-130); Calcium 9.7 mg/dL (7.8-10.44); Carbon Dioxide 24 mmol/L (22-29); Chloride 104 mmol/L (98-107); Estimated GFR 75; Globulin 4.2 g/dL (2.4-3.5); Glucose 87 mg/dL (70-105); Lipase 16 U/L (8-78); Magnesium 2.4 mg/dL (1.6-2.6); Protein, Total 8.1 g/dL (6.0-8.3); Sodium 136 mmol/L (136-145)
[2024-01-31 00:32] LABS: Troponin I 0.018 ng/mL (< 0.028)
[2024-01-31] MEDS ORDERED: levETIRAcetam 500 MG (5 mL) VIAL ONE (01:48)
[2024-01-31] MEDS ORDERED: Acetaminophen 325 MG TAB PO PRN (03:42)
[2024-01-31] MEDS ORDERED: Nitroglycerin 0.4 MG TAB (25 Tab Bottle) SL PRN (03:42)
[2024-01-31] MEDS ORDERED: Ondansetron PF 4 MG/2 ML Vial IVP PRN (03:42)
[2024-01-31 04:00] LABS: Prothrombin Time 13.6 sec (12.0-14.7)
[2024-01-31 04:01] LABS: PTT 34.8 sec (22.9-36.1)
[2024-01-31 04:44] LABS: Troponin I Less than 0.010 ng/mL (< 0.028)
[2024-01-31 06:24] VITALS: BMI 23.5
[2024-01-31 06:38] VITALS: TEMP 97.6
[2024-01-31 07:39] VITALS: BP 131/88
[2024-01-31 07:52] LABS: Troponin I Less than 0.010 ng/mL (< 0.028)
[2024-01-31] MEDS ORDERED: Phenytoin Extended Release 100 MG CAP PO SCH (09:00)
[2024-01-31] MEDS: Phenytoin 100 MG (4 mL) UDCUP PO SCH (09:45)
[2024-01-31] MEDS ORDERED: Phenytoin 100 MG (4 mL) UDCUP PO SCH (12:00)
[2024-01-31] MEDS ORDERED: Regadenoson 0.4 MG/5 ML SYRINGE ONE (12:01)
== END 2024-01-31 14:36 | disposition home or self-care (01) ==
LOC: ERS 23:02 → ERHOLD 01-31 03:42
PROVIDERS: ADMIT Internal Medicine; ATTEND Internal Medicine
DX: R07.9 Chest pain, unspecified (principal); G40.909 Epilepsy, unspecified, not intractable, without status epilepticus; I48.91 Unspecified atrial fibrillation; I11.0 Hypertensive heart disease with heart failure; I50.22 Chronic systolic (congestive) heart failure; R73.03 Prediabetes; Z88.6 Allergy status to analgesic agent; Z91.041 Radiographic dye allergy status; Z95.4 Presence of other heart-valve replacement; F17.210 Nicotine dependence, cigarettes, uncomplicated; Z79.899 Other long term (current) drug therapy
CPT/HCPCS: 36415; 71045; 78452; 80053; 83690; 83735; 83880; 84484; 85025; 85610; 85730; 93005; 93017; 96374; A9500; G0378; J1953; J2785